=== PATIENT | female | born 1990 | race Two or more races ===

== ENCOUNTER 2025-06-14 13:16 | Outpatient (AMB) | payer MEDICAID, SELFPAY ==
--- NOTE | 2025-06-14 13:38 | AMB.OBINITIA ---
Vital Signs 06/14/25 13:39 Height 1.52 m Height Method Stated Weight 77.337 kg Weight Measurement Method Standing Scale BMI 33.3 BP 116/68 Blood Pressure Source Automatic Cuff Blood Pressure Location Left Upper Arm Position Sitting Respiration 16 Pulse 78 Pulse Source Monitor Temp 98 F Temp Source Oral Pulse Oximetry (%) 96 Oxygen Delivery Method Room Air Allergies/Home Meds Allergies & Medications Allergies No Known Allergies Allergy (Verified 06/14/25 13:40) Medication Reconciliation No Known Home Medications 06/14/25 [History Confirmed 06/14/25] Intake Visit Data Collection New Patient or Established: New Patient (never been to [facility]) Reason for Visit:: INITIAL CARE Seen by Clinical Staff ONLY (RN/MA): No In Classroom Tutor Required: No Do You Feel Safe at Home: Yes Authorities Contacted: N/A PCP or OBGYN visit in last 3 months: No Hx Now: Yes Are you currently on any form of Control: No Last menstrual period: 05/02/25 Pain Present Currently: No Pain Scale Used: Infante-Rebolledo/Numerical Pain scale:: 0 Smoking Status Smoking Status: Never smoker Questionnaires Covid-19 Vaccine Questionnaire Has patient been vacinated for Covid-19 Have you been vacinated for Covid-19: No PHQ-9 PHQ-2 Over the last 2 weeks, how often have you been bothered by any of the following problems? 1. Little interest or pleasure in doing things: not at all 2. Feeling down, depressed, or hopeless: not at all Total score: 0 PHQ-9 3. Trouble falling or staying asleep, or sleeping too much: Not at all 4. Feeling tired or having little energy: Not at all 5. Poor appetite or overeating: Not at all 6. Feeling bad about yourself - or that you are a failure or have let yourself or your family down: Not at all 7. Trouble concentrating on things, such as reading the newspaper or watching television: Not at all 8. Moving or speaking so slowly that other people could have noticed? - Or the opposite - being so fidgety or restless that you have been moving around a lot more than usual: not at all 9. Thoughts that you would be better off or of hurting yourself in some way: Not at all Total score: 0 Source: Developed by Drs. Geraldo Oconnor, Anjali Ovalles, Jairon Lomeli and colleagues, with an educational natalie from [employer]. Depression screen completed yes Social History Living Situation History Marital Status: Lives With: Family Housing: Apartment Tobacco History Smoking Status: Never smoker Second Hand Smoke Exposure: No Alcohol History Alcohol Intake: Never Domestic Abuse History Do You Feel Safe at Home: Yes History of Present Illness HPI Narrative 35-year-old 1 para 0 for OBI. Patient's last period February 02, 2025. Estimated due date is November 09, 2025. Patient states she has not had any problems so far with the . Reports slight movement. Patient denies leaking, bleeding, contractions. Patient denies any existing medical problems. Denies any social habits. And denies surgeries. Both patient and partner are happy about the . No OB complaints at this time. OB Initial Visit OB Flowsheet OB Flowsheet Initial Weight: Not Recorded Date <del>?</del> EGA Weight BP Alb Glu CTX Pres Fundal ht FHR Mov Dilation Station Effacement Hx Notes Visit Note 06/14/25 <del>?</del> 18w 6d 77.337 kg 116/68 absent unknown 19 145 active Third ED 5-year-old 1 para 0 for OBI. Last period February 02, 2025. Estimated due date November 09, 2025. Patient denies any leaking, bleeding, or cramping. Patient states that she is unable to go to M appointment because of lack of transportation. She would however like ultrasound here in [place]. Schedule OB ultrasound at [facility]. aFP NIPT with OB panel and A1c today. Discussed labor precautions. Increase fluids. Continue vitamins. Return in 4 weeks for OB check Menstrual History Menstrual reliability: definite Flow: normal Menstrual regularity: irregular Monthly: No Age at menarche: 15 On control pills at conception: No Associated symptoms (LMP): Reports fatigue OB History : 1 Infection History & Risk Evaluation History of STDs: none Genetic Screening & History Genetic Screening/Teratology Counseling - Includes patient, baby's father, or anyone in either family with: 1. Patient's age 35 years or older as of estimated date of delivery: No 2. Thalassemia (Montenegrin, Polish, Mediterranean, or Background); MCV less than 80: No 3. Neural Tube Defect (Meningomyelocele, Spina Bifida, or Anencephaly): No 4. Congenital Heart Defect: No 5. Down Syndrome: No 6. Warren-Sachs (Ashkenazi Restorationist, Cajun, Sami Burns): No 7. Maurilio Disease (Ashkenazi Restorationist): No 8. Familial Dysautonomia (Ashkenazi Restorationist): No 9. Sickle Cell Disease or Trait (): No 10. Hemophilia or other blood disorders: No 11. Muscular Dystrophy: No 12. Cystic Fibrosis: No 13. [place]'s Chorea: No 14. Mental Retardation/Autism: No 15. Other inherited genetic or chromosomal disorder: No 16. Maternal Metabolic Disorder (EG,TYPE 1 Diabetes, PKU): No 17. Patient or baby's father had a child with defects not listed above: No 18. Recurrent loss or a stillbirth: No 19. Medications (including supplements, vitamins, herbs or otc drugs)/illicit/recreational drugs/alcohol since last menstrual period: No 20. Any other: No Infection History 1. Live with someone with TB or exposed to TB: No 2. Rash or viral illness since last menstrual period: No 3. Hepatitis B,C: No Other (see comments) Source: [employer] Review of Systems Review of Systems Systems Reviewed: All systems reviewed, normal except as documented Constitutional Constitutional: Reports fatigue Endocrine Endocrine: Reports fatigue Exam General Limitations: no limitations General Appearance: alert, in no apparent distress, comfortable, cooperative, healthy appearing, well developed and well groomed Head Head exam: atraumatic, normocephalic and normal inspection Chest Chest inspection: Present normal inspection and symmetric chest wall rise Resp Respiratory exam: Present normal lung sounds bilaterally Card Cardiovascular exam: Present regular rate, normal rhythm and normal heart sounds Abdominal Abdominal exam: Present soft and normal bowel sounds Psych Psychiatric exam: Present normal affect and normal mood Office Procedures OB Clinic LOC & Office Proc's Nursing/Assessment Patient Status: Established Patient OB Clinic Nursing Assessment: Medication Reconciliation, Update PMH in EMR and Vital Signs OB Clinic Coordination of Care: Complex Care and Chronic Disease 1-5, Consent,records obtained, informed consent, Education Simp Pt/Fam, 1 Ins Authorization, Lab and Imaging orders, Results/Orders obtained and Staff clarify orders Special Needs: Heart tones Established Patient Charge Established Patient Point Assignment: 150 Established Patient Point Charge: EP Level 4 (120-155) Assessment & Plan Diagnosis / Problem List (1) Encounter for supervision of high risk in second trimester, antepartum: Status: Acute Plan Schedule OB ultrasound at [facility] because of lack of transportation. OB panel today with NIPT, AFP, carrier screen and hemoglobin A1c. Discussed labor precautions. Continue prenatals. Increase fluids. Return in 4 weeks OB check Additional Plan Follow Up: 4 Weeks (OBC)
[2025-06-14 13:39] VITALS: BP 116/68; PULSE 78; RESP 16; TEMP 36.6; O2SAT 96; BMI 33.3
== END 2025-06-14 14:02 | disposition home or self-care (01) ==
LOC: HODSOBC 13:16
PROVIDERS: Supervising Provider Advanced Practice Midwife; Visit Provider Advanced Practice Midwife
DX: O09.92 Supervision of high risk pregnancy, unspecified, second trimester (principal); Z3A.18 18 weeks gestation of pregnancy; Z59.82 Transportation insecurity
CPT/HCPCS: 99214; G0463

== ENCOUNTER 2025-07-12 14:23 | Outpatient (AMB) | payer MEDICAID, SELFPAY ==
[2025-07-12 14:29] VITALS: BP 122/78; PULSE 87; RESP 17; TEMP 36.6; O2SAT 96; BMI 34.9
--- NOTE | 2025-07-12 14:29 | OBCLNT_ITS ---
Vital Signs 07/12/25 14:29 Height 1.52 m Height Method Stated Weight 80.796 kg Weight Measurement Method Standing Scale BMI 34.9 BP 122/78 Blood Pressure Source Automatic Cuff Blood Pressure Location Right Upper Arm Position Sitting Respiration 17 Pulse 87 Pulse Source Monitor Temp 97.9 F Temp Source Temporal Artery Scan Pulse Oximetry (%) 96 Oxygen Delivery Method Room Air Allergies/Home Meds Allergies & Medications Allergies No Known Allergies Allergy (Verified 07/12/25 14:30) Medication Reconciliation No Known Home Medications 06/14/25 [History Confirmed 07/12/25] Intake Visit Data Collection New Patient or Established: Established Patient (seen at [facility] within 3 years) Reason for Visit:: OBC Seen by Clinical Staff ONLY (RN/MA): No Wool And Pelt Grader Required: No Do You Feel Safe at Home: Yes Authorities Contacted: N/A PCP or OBGYN visit in last 3 months: Yes Date of Last PCP or OBGYN visit: 06/14/25 Hx Now: Yes Are you currently on any form of Control: No Pain Present Currently: Yes Pain Location: Abdomen Pain Scale Used: Infante-Rebolledo/Numerical Pain scale:: 7 Smoking Status Smoking Status: Never smoker Questionnaires Covid-19 Vaccine Questionnaire Has patient been vacinated for Covid-19 Have you been vacinated for Covid-19: No PHQ-9 PHQ-2 Over the last 2 weeks, how often have you been bothered by any of the following problems? 1. Little interest or pleasure in doing things: not at all 2. Feeling down, depressed, or hopeless: not at all Total score: 0 PHQ-9 3. Trouble falling or staying asleep, or sleeping too much: Not at all 4. Feeling tired or having little energy: Not at all 5. Poor appetite or overeating: Not at all 6. Feeling bad about yourself - or that you are a failure or have let yourself or your family down: Not at all 7. Trouble concentrating on things, such as reading the newspaper or watching television: Not at all 8. Moving or speaking so slowly that other people could have noticed? - Or the opposite - being so fidgety or restless that you have been moving around a lot more than usual: not at all 9. Thoughts that you would be better off or of hurting yourself in some way: Not at all Total score: 0 If you checked off any problems, how difficult have these problems made it for you to do your work, take care of things at home, or get along with other people?: not difficult at all Source: Developed by Drs. Geraldo Oconnor, Anjali Ovalles, Jairon Lomeli and colleagues, with an educational natalie from [employer]. Depression screen completed yes Social History Living Situation History Marital Status: Lives With: Family Housing: Apartment Tobacco History Smoking Status: Never smoker Second Hand Smoke Exposure: No Alcohol History Alcohol Intake: Never Domestic Abuse History Do You Feel Safe at Home: Yes Care OB Visit Log OB Flowsheet Initial Weight: Not Recorded Date -?-?-?-?-?-?-?-?-?-?-?-?- EGA Weight BP Alb Glu CTX Pres Fundal ht FHR Mov Dilation Station Effacement Hx Notes Visit Note 06/14/25 -?-?-?-?-?-?-?-?-?-?-?-?- 18w 6d 77.337 kg 116/68 absent unknown 19 145 active Third ED 5-year-old 1 para 0 for OBI. Last period February 02, 2025. Estimated due date November 09, 2025. Patient denies any leaking, bleeding, or cramping. Patient states that she is unable to go to [facility] appointment because of lack of transportation. She would however like ultrasound here in [place]. Schedule OB ultrasound at [facility]. aFP NIPT with OB panel and A1c today. Discussed labor precautions. Increase fluids. Continue vitamins. Return in 4 weeks for OB check 07/12/25 -?-?-?-?-?-?-?-?-?-?-?-?- 22w 6d 80.796 kg 122/78 absent unknown 22 135 active Patient would like disability. She has not been working for the last 4 weeks. Disability will start at her next visit. 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 Denies leaking, bleeding, contractions Start disability next visit. Discussed labor precautions. Follow-up on ultrasound from [facility]. Discussed increasing fluids continue prenatals and return in 4 weeks OB check PATRICIO Calculator Estimated Delivery Date Method Current WG Current Estimate 11/09/25 LMP (Certain) 22w 6d Other Estimates 11/04/25 Ultrasound #1 23w 4d Notes Visit Date: 07/12/25 Last Updated by: Florinda Shahid CNM NIPT-/SMA-, CF pending, A+,abs-, RPR::NR, rub imm, HBSAG-,HIV-,HC-, GC/CT- , UA-,UT-, /,AFP-, A1: 5.5 Visit Date: 06/14/25 Last Updated by: Florinda Shahid CNM 35 yo . lmp 02/02/25. EDC: 11/09/25 Office Procedures OBC Clinic LOC & Office Proc's Nursing/Assessment Patient Status: Established Patient OB Clinic Nursing Assessment: Medication Reconciliation, Update PMH in EMR and Vital Signs OB Clinic Coordination of Care: Complex Care and Chronic Disease 1-5, Education Complex Pt/Fam, Consent,records obtained, informed consent, Results/Orders obtained and Staff clarify orders Special Needs: Heart tones Established Patient Charge Established Patient Point Assignment: 125 Established Patient Point Charge: EP Level 4 (120-155) Assessment & Plan Diagnosis / Problem List (1) Encounter for supervision of high risk in second trimester, antepartum: Status: Acute Plan Third trimester labs next visit. Follow-up on sono results that were done at [facility]. Discussed labor precautions. Patient was working in the field. She liked disability. She has not worked in 4 weeks. Will start disability at her next visit in 4 weeks. Return in 4 weeks OB check Additional Plan Follow Up: 4 Weeks (obc)
== END 2025-07-12 15:13 | disposition home or self-care (01) ==
PROVIDERS: Supervising Provider Advanced Practice Midwife; Visit Provider Advanced Practice Midwife
DX: O09.92 Supervision of high risk pregnancy, unspecified, second trimester (principal); Z3A.22 22 weeks gestation of pregnancy
CPT/HCPCS: 99214; G0463

== ENCOUNTER 2025-08-14 14:51 | Outpatient (AMB) | payer MEDICAID, SELFPAY ==
[2025-08-14 15:01] VITALS: BP 113/69; PULSE 90; RESP 18; TEMP 36.7; O2SAT 95; BMI 35.9
--- NOTE | 2025-08-14 15:01 | AMB.OBVISIT ---
Vital Signs 08/14/25 15:01 Height 1.52 m Height Method Stated Weight 83.064 kg Weight Measurement Method Standing Scale BMI 35.9 BP 113/69 Blood Pressure Source Automatic Cuff Blood Pressure Location Right Upper Arm Position Sitting Respiration 18 Pulse 90 Pulse Source Monitor Temp 98.0 F Temp Source Temporal Artery Scan Pulse Oximetry (%) 95 Oxygen Delivery Method Room Air Allergies/Home Meds Allergies & Medications Allergies No Known Allergies Allergy (Verified 08/14/25 15:03) Medication Reconciliation No Known Home Medications 06/14/25 [History Confirmed 08/14/25] Intake Visit Data Collection New Patient or Established: Established Patient (seen at [facility] within 3 years) Reason for Visit:: OBC Seen by Clinical Staff ONLY (RN/MA): No Bowling Ball Engraver Required: No Do You Feel Safe at Home: Yes Authorities Contacted: N/A PCP or OBGYN visit in last 3 months: Yes Date of Last PCP or OBGYN visit: 07/12/25 Hx Now: Yes Are you currently on any form of Control: No Pain Present Currently: No Pain Scale Used: Infante-Rebolledo/Numerical Pain scale:: 0 Smoking Status Smoking Status: Never smoker Immunizations Flu Vaccine in the Last 12 Months: No Flu Vaccine Exclusion Criteria: No Exclusion Criteria Questionnaires Covid-19 Vaccine Questionnaire Has patient been vacinated for Covid-19 Have you been vacinated for Covid-19: No PHQ-9 PHQ-2 Over the last 2 weeks, how often have you been bothered by any of the following problems? 1. Little interest or pleasure in doing things: not at all 2. Feeling down, depressed, or hopeless: not at all Total score: 0 PHQ-9 3. Trouble falling or staying asleep, or sleeping too much: Not at all 4. Feeling tired or having little energy: Not at all 5. Poor appetite or overeating: Not at all 6. Feeling bad about yourself - or that you are a failure or have let yourself or your family down: Not at all 7. Trouble concentrating on things, such as reading the newspaper or watching television: Not at all 8. Moving or speaking so slowly that other people could have noticed? - Or the opposite - being so fidgety or restless that you have been moving around a lot more than usual: not at all 9. Thoughts that you would be better off or of hurting yourself in some way: Not at all Total score: 0 If you checked off any problems, how difficult have these problems made it for you to do your work, take care of things at home, or get along with other people?: not difficult at all Source: Developed by Drs. Geraldo Oconnor, Anjali Ovalles, Jairon Lomeli and colleagues, with an educational natalie from [employer]. Depression screen completed yes Social History Living Situation History Marital Status: Lives With: Family Housing: Apartment Tobacco History Smoking Status: Never smoker Second Hand Smoke Exposure: No Alcohol History Alcohol Intake: Never Domestic Abuse History Do You Feel Safe at Home: Yes Care OB Visit Log OB Flowsheet Initial Weight: Not Recorded Date <del>?</del> EGA Weight BP Alb Glu CTX Pres Fundal ht FHR Mov Dilation Station Effacement Hx Notes Visit Note 06/14/25 <del>?</del> 18w 6d 77.337 kg 116/68 absent unknown 19 145 active Third ED 5-year-old 1 para 0 for OBI. Last period February 02, 2025. Estimated due date November 09, 2025. Patient denies any leaking, bleeding, or cramping. Patient states that she is unable to go to [facility] appointment because of lack of transportation. She would however like ultrasound here in [place]. Schedule OB ultrasound at [facility]. aFP NIPT with OB panel and A1c today. Discussed labor precautions. Increase fluids. Continue vitamins. Return in 4 weeks for OB check 07/12/25 <del>?</del> 22w 6d 80.796 kg 122/78 absent unknown 22 135 active Patient would like disability. She has not been working for the last 4 weeks. Disability will start at her next visit. 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 Denies leaking, bleeding, contractions Start disability next visit. Discussed labor precautions. Follow-up on ultrasound from [facility]. Discussed increasing fluids continue prenatals and return in 4 weeks OB check 08/14/25 <del>?</del> 27w 4d 83.064 kg 113/69 absent unknown 27 135 active Patient reports movement. Denies leaking, bleeding, contractions. Patient reports that she has not worked for over a year and she would like to apply for disability today. Continue prenatals. Third trimester labs today. Schedule in [place] with maternal- medicine for ultrasound. Patient told me that she can get there by her uncle. And okay to apply for disability today. Return in 3 weeks OB check PATRICIO Calculator Estimated Delivery Date Method Current WG Current Estimate 11/09/25 LMP (Certain) 27w 4d Other Estimates 11/04/25 Ultrasound #1 28w 2d 11/09/25 Manual 27w 4d final patricio; 11/09/25 Notes Visit Date: 07/12/25 Last Updated by: Florinda Shahid CNM NIPT-/SMA-, CF pending, A+,abs-, RPR::NR, rub imm, HBSAG-,HIV-,HC-, GC/CT-, UA-,UT-, ,AFP-, A1: 5.5 Visit Date: 06/14/25 Last Updated by: Florinda Shahid CNM 35 yo . lmp 02/02/25. EDC: 11/09/25 Office Procedures OBC Clinic LOC & Office Proc's Nursing/Assessment Patient Status: Established Patient OB Clinic Nursing Assessment: Medication Reconciliation, Update PMH in EMR and Vital Signs OB Clinic Coordination of Care: Complex Care and Chronic Disease 1-5, Education Complex Pt/Fam, Consent,records obtained, informed consent, Results/Orders obtained and Staff clarify orders Special Needs: Heart tones Established Patient Charge Established Patient Point Assignment: 125 Established Patient Point Charge: EP Level 4 (120-155) Assessment & Plan Diagnosis / Problem List (1) Encounter for supervision of high risk in second trimester, antepartum: Status: Acute Plan Schedule ultrasound at [facility] for MFM appointment and anatomy scan. Third trimester labs today. Discussed diet and weight. And discussed labor precautions patient can start disability today. And return in 3 weeks OB check Additional Plan Follow Up: 3 Weeks (obc)
== END 2025-08-14 15:29 | disposition home or self-care (01) ==
PROVIDERS: Supervising Provider Advanced Practice Midwife; Visit Provider Advanced Practice Midwife
DX: O09.92 Supervision of high risk pregnancy, unspecified, second trimester (principal); Z3A.27 27 weeks gestation of pregnancy
CPT/HCPCS: 99214; G0463

== ENCOUNTER 2025-09-11 14:49 | Outpatient (AMB) | payer MEDICAID, SELFPAY ==
--- NOTE | 2025-09-11 15:03 | OBCLNT_ITS ---
Vital Signs 09/11/25 15:04 Height 1.52 m Height Method Stated Weight 84.425 kg Weight Measurement Method Standing Scale BMI 36.5 BP 107/69 Blood Pressure Source Automatic Cuff Blood Pressure Location Right Upper Arm Position Sitting Respiration 18 Pulse 88 Pulse Source Monitor Temp 97.8 F Temp Source Temporal Artery Scan Pulse Oximetry (%) 96 Oxygen Delivery Method Room Air Allergies/Home Meds Allergies & Medications Allergies No Known Allergies Allergy (Verified 09/11/25 15:05) Medication Reconciliation No Known Home Medications 06/14/25 [History Confirmed 09/11/25] Immunizations Immunizations Flu Vaccine in the Last 12 Months: No Flu Vaccine Exclusion Criteria: No Exclusion Criteria Care OB Visit Log OB Flowsheet Initial Weight: Not Recorded Date -?-?-?-?-?-?-?-?-?-?-?-?- EGA Weight BP Alb Glu CTX Pres Fundal ht FHR Mov Dilation Station Effacement Hx Notes Visit Note 06/14/25 -?-?-?-?-?-?-?-?-?-?-?-?- 18w 6d 77.337 kg 116/68 absent unknown 19 145 active Third ED 5-year-old 1 para 0 for OBI. Last period February 02, 2025. Estimated due date November 09, 2025. Patient denies any leaking, bleeding, or cramping. Patient states that she is unable to go to [facility] appointment because of lack of transportation. She would however like ultrasound here in [place]. Schedule OB ultrasound at [facility]. aFP NIPT with OB panel and A1c today. Discussed labor precautions. Increase fluids. Continue vitamins. Return in 4 w eeks for OB check 07/12/25 -?-?-?-?-?-?-?-?-?-?-?-?- 22w 6d 80.796 kg 122/78 absent unknown 22 135 active Patient would like disability. She has not been working for the last 4 weeks. Disability will start at her next visit. 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 Denies leaking, bleeding, contractions Start disability next visit. Discussed labor precautions. Follow-up on ultrasound from [facility]. Discussed increasing fluids continue prenatals and return in 4 weeks OB check 08/14/25 -?-?-?-?-?-?-?-?-?-?-?-?- 27w 4d 83.064 kg 113/69 absent unknown 27 135 active Patient reports movement. Denies leaking, bleeding, contractions. Patient reports that she has not worked for over a year and she would like to apply for disability today. Continue prenatals. Third trimester labs today. Schedule in [place] with maternal- medicine for ultrasound. Patient told me that she can get there by her uncle. And okay to apply for disability today. Return in 3 weeks OB check 09/11/25 -?-?-?-?-?-?-?-?-?-?-?-?- 31w 4d 84.425 kg 107/69 absent unknown 32 150 active Follow-up maternal- medicine appointment is October 12. Reports good movement. Denies leaking, bleeding, contractions Discussed labs. I discussed diet and weight gain. Encouraged patient to walk 40 minutes a day. Keep appointment with maternal- medicine October 12 PATRICIO Calculator Estimated Delivery Date Method Current WG Current Estimate 11/09/25 LMP (Certain) 31w 4d Other Estimates 11/04/25 Ultrasound #1 32w 2d 11/09/25 Manual 31w 4d final patricio; 11/09 Notes Visit Date: 09/11/25 Last Updated by: Florinda Shahid CNM 3rd tri lab: 1 hr gtt: 119, A1: 5.9,RPR::NR, Visit Date: 07/12/25 Last Updated by: Florinda Shahid CNM NIPT-/SMA-, CF pending, A+,abs-, RPR::NR, rub imm, HBSAG-,HIV-,HC-, GC/CT- , UA-,UT-, /,AFP-, A1: 5.5 Visit Date: 06/14/25 Last Updated by: Florinda Shahid CNM 35 yo . lmp 02/02/25. EDC: 11/09/25 Office Procedures OBC Clinic LOC & Office Proc's Nursing/Assessment Patient Status: Established Patient OB Clinic Nursing Assessment: Medication Reconciliation, Update PMH in EMR and Vital Signs OB Clinic Coordination of Care: Complex Care and Chronic Disease 1-5, Education Complex Pt/Fam, Consent,records obtained, informed consent, Lab and Imaging orders, Results/Orders obtained and Staff clarify orders Special Needs: Heart tones Established Patient Charge Established Patient Point Assignment: 140 Established Patient Point Charge: EP Level 4 (120-155) Assessment & Plan Diagnosis / Problem List (1) Encounter for supervision of high risk in third trimester, antepartum: Status: Acute Plan Discussed labor precautions. I discussed diet and weight gain. Patient to decrease sugary foods. Walk 40 minutes a day. Follow-up with maternal- medicine October 12. Additional Plan Follow Up: 4 Weeks (obc)
[2025-09-11 15:04] VITALS: BP 107/69; PULSE 88; RESP 18; TEMP 36.6; O2SAT 96; BMI 36.5
== END 2025-09-11 15:35 | disposition home or self-care (01) ==
PROVIDERS: Supervising Provider Advanced Practice Midwife; Visit Provider Advanced Practice Midwife
DX: O09.93 Supervision of high risk pregnancy, unspecified, third trimester (principal); Z3A.31 31 weeks gestation of pregnancy
CPT/HCPCS: 99213; 99214; G0463